=== PATIENT | male | born 1950 ===

== ENCOUNTER → 2023-09-24 19:31 | Outpatient (REF) | payer OTHER, SELFPAY | LOC: MRI 19:31 | PROVIDERS: ATTENDING PHYSICIAN Family Medicine | DX: C85.91 Non-Hodgkin lymphoma, unspecified, lymph nodes of head, face, and neck (principal) | CPT/HCPCS: 70553; A9575 ==

== ENCOUNTER → 2023-10-19 10:28 | Outpatient (REF) | payer OTHER, SELFPAY | LOC: HWRAD 10:28 | PROVIDERS: ATTENDING PHYSICIAN Urology; FAMILY PHYSICIAN Family Medicine | DX: N32.89 Other specified disorders of bladder (principal) | CPT/HCPCS: 71046 ==